=== PATIENT | male | born 1965 | race Caucasian/White ===

== ENCOUNTER 2017-01-15 17:25 | Inpatient (IN) | payer SELFPAY ==
[~2017-01-15] VITALS: Ht 182.9 cm; Wt 52.8 kg
[2017-01-15 20:05] VITALS: BP 120/81
[2017-01-15] MEDS ORDERED: LORAZEPAM 2 MG/ML VIAL IV PRN ×2 (20:45)
[2017-01-15] MEDS ORDERED: HALOPERIDOL LACT 5 MG/ML VIAL. IVP PRN (20:45)
[2017-01-15] MEDS ORDERED: MORPHINE SULFATE 2 MG/ML DISP.SYRIN. IV PRN (20:45)
[2017-01-15] MEDS ORDERED: LORAZEPAM 1 MG TABLET. PO PRN ×2 (20:45)
[2017-01-15] MEDS ORDERED: CHLORDIAZEPOXIDE HCL 25 MG CAPSULE PO PRN ×2 (20:45)
[2017-01-15] MEDS ORDERED: DIPHENHYDRAMINE 50 MG/ML VIAL IVP PRN (20:45)
[2017-01-15] MEDS ORDERED: CLONIDINE HCL 0.1 MG TABLET PO PRN (20:45)
[2017-01-15] MEDS: IV NORMAL SALINE 1000ML BAG 1,000 ML IV SCH (21:16)
[2017-01-15 21:26] LABS: BASO % 0 % (0-3); EOS % 0 % (0-3); HEMATOCRIT 38.3 % (39.0-53.0); HEMOGLOBIN 12.7 g/dL (13.0-17.5); LYMPH # 0.3 x10^3/uL (1.0-4.8); LYMPH % 4 % (24-48); MEAN CORPUSCULAR HEMOGLOBIN 34 pg (25-35); MEAN CORPUSCULAR HGB CONC 33 g/dL (31-37); MEAN CORPUSCULAR VOLUME 102 fL (79-100); MONO % 1 % (0-9); NEUT % 95 % (31-73); PLATELET COUNT 172 x10^3/uL (140-400); RED BLOOD COUNT 3.75 x10^6/uL (4.30-5.70); RED CELL DISTRIBUTION WIDTH 14.5 % (11.5-14.5); WHITE BLOOD COUNT 8.3 x10^3/uL (4.0-11.0)
[2017-01-15 21:50] LABS: CALCIUM 8.8 mg/dL (8.5-10.1); CREATININE 0.9 mg/dL (0.7-1.3); POTASSIUM 3.3 mmol/L (3.5-5.1)
[2017-01-15 21:54] LABS: DIRECT BILIRUBIN 0.3 mg/dL (0.0-0.2); TOTAL BILIRUBIN 0.7 mg/dL (0.2-1.0); TOTAL PROTEIN 7.9 g/dL (6.4-8.2)
[2017-01-15 22:19] LABS: PLT ESTIMATE ADEQUATE (ADEQUATE)
[2017-01-15 22:54] VITALS: BP 114/70
[2017-01-15] MEDS: MORPHINE SULFATE 4 MG/ML DISP.SYRIN. IV PRN (23:15)
--- NOTE | 2017-01-16 00:19 | HP ---
ADMIT DATE: 01/15/2017 CHIEF COMPLAINT: Neck mass. HISTORY OF PRESENT ILLNESS: The patient is a pleasant middle-aged white male who continues to smoke, although he states he quit a week ago. He presented to [facility] ER complaining of right neck mass. They did a CAT scan, confirming probable malignancy, have accepted the patient as a transfer to our facility with consultation to Oncology. PAST MEDICAL HISTORY: Tobacco abuse. ALLERGIES: None. FAMILY HISTORY: Noncontributory. SOCIAL HISTORY: He drinks socially. He does not take drugs. He does smoke, although he quit a week ago. MEDICATIONS: Reviewed. REVIEW OF SYSTEMS: GENERAL: No history of weight change, weakness or fevers. SKIN: No bruising, hair changes or rashes. EYES: No blurred, double or loss of vision. NOSE AND THROAT: No history of nosebleeds, hoarseness or sore throat. He complains of right neck mass. HEART: No history of palpitations, chest pain or shortness of breath on exertion. LUNGS: Denies cough, hemoptysis, wheezing or shortness of breath. GASTROINTESTINAL: Denies changes in appetite, nausea, vomiting, diarrhea or constipation. GENITOURINARY: No history of frequency, urgency, hesitancy or nocturia. NEUROLOGIC: Denies history of numbness, tingling, tremor or weakness. PSYCHIATRIC: No history of panic, anxiety or depression. ENDOCRINE: No history of heat or cold intolerance, polyuria or polydipsia. EXTREMITIES: Denies muscle weakness, joint pain, pain on walking or stiffness. PHYSICAL EXAMINATION: VITAL SIGNS: Temperature afebrile, pulse 68, respirations 21, and blood pressure 144/90. GENERAL: He is alert, cooperative, and anxious. HEENT: The right side of the neck is quite distended. There are nodules, at least 2 of them, one is about 2 cm and the other one is about 4 cm. They are firm, nontender. I suspect they are cancers. HEART: Normal S1, S2. LUNGS: Clear. ABDOMEN: Soft, positive bowel sounds. EXTREMITIES: No edema. SKIN: No rashes. PSYCHIATRIC: He is anxious. VASCULAR: Good capillary refill. ENDOCRINE: No thyromegaly. LYMPHATICS: He does have some enlarged lymph nodes on the cervical chain on both sides of his neck. HEMATOPOIETIC: No bruising. LABORATORY DATA: Pending. 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 The patient is being ____ consult Oncology. Suspect, he will need a biopsy. I have told him to quit smoking. We will use p.r.n. narcotics for pain, cardiac monitoring. MIRIAN BENEDICT DO DR: FRANK/avani JOB#: [id number] / [id number]
[2017-01-16] MEDS ORDERED: PNEUMOCOCCAL VAX SCREEN BY RX. MC ONE (01:45)
[2017-01-16] MEDS ORDERED: INFLUENZA VAX SCREEN BY RX. MC ONE (01:45)
[2017-01-16 02:22] VITALS: BP 131/85
[2017-01-16 06:06] LABS: BASO % 0 % (0-3); EOS % 0 % (0-3); HEMATOCRIT 37.3 % (39.0-53.0); HEMOGLOBIN 12.3 g/dL (13.0-17.5); LYMPH # 0.3 x10^3/uL (1.0-4.8); LYMPH % 4 % (24-48); MEAN CORPUSCULAR HEMOGLOBIN 34 pg (25-35); MEAN CORPUSCULAR HGB CONC 33 g/dL (31-37); MEAN CORPUSCULAR VOLUME 104 fL (79-100); MONO % 1 % (0-9); NEUT % 94 % (31-73); PLATELET COUNT 170 x10^3/uL (140-400); RED BLOOD COUNT 3.59 x10^6/uL (4.30-5.70); RED CELL DISTRIBUTION WIDTH 14.8 % (11.5-14.5); WHITE BLOOD COUNT 7.8 x10^3/uL (4.0-11.0)
[2017-01-16 06:17] LABS: CALCIUM 8.6 mg/dL (8.5-10.1); CREATININE 0.8 mg/dL (0.7-1.3); GFR 101.9; POTASSIUM 3.1 mmol/L (3.5-5.1)
[2017-01-16 07:00] VITALS: BP 142/91
--- NOTE | 2017-01-16 08:55 | PDOC ---
Provider Note Provider Note Onc consult dictated- [id number] Head and neck cancer with supraglottic airway narrowing Cachexia Tob abuse history- quit 1 wk ago Needs transfer to for ENT eval & bx, rad onc, med onc, dental, aggressive nutritional support. Ordered CT chest while waiting for transfer. NEAL SANTANA DO Jan 16, 2017 08:55
[2017-01-16] MEDS ORDERED: FLU VACC QUAD 2016-17 (36MOS+)/PF 0.5 ML SYRINGE. VAX IM ONE (09:00)
[2017-01-16] MEDS ORDERED: PNEUMOC CONJ VACC 23-VALENT 0.5 ML VIAL. VAX IM ONE (09:00)
[2017-01-16] MEDS ORDERED: MULTIVIT INFUSN,ADULT 4,VIT K 10 ML, THIAMINE 100 MG, FOLIC ACID 1 MG in IV NORMAL SALI... IV SCH (09:00)
[2017-01-16] MEDS: IV NORMAL SALINE 1000ML BAG 1,000 ML IV SCH (09:02)
[2017-01-16] MEDS ORDERED: POTASSIUM CHLORIDE 20 MEQ TABLET.ER. PO ONE (09:45)
--- NOTE | 2017-01-16 10:00 | PDOC ---
PROGRESS NOTES Chief Complaint Chief Complaint Head and neck cancer with supraglottic airway narrowing Plan Transfer to [facility] ENT History of Present Illness History of Present Illness no sob mild difficulty to swallow no fever Vitals Vitals Vital Signs Date Time Temp Pulse Resp B/P Pulse Ox O2 Delivery O2 Flow Rate FiO2 01/16/17 08:00 Room Air 01/16/17 07:00 97.9 105 20 142/91 96 97.9 Physical Exam General: Alert, Oriented X3, Other (right neck mass solid 6-7 cm) Heart: Normal S1, Normal S2 Lungs: Clear, Wheezing Abdomen: Normal bowel sounds, Soft Extremities: No clubbing Labs LABS Laboratory Tests Test 01/15/17 20:38 01/15/17 21:15 01/16/17 05:25 Total Bilirubin 0.7mg/dL (0.2-1.0) Direct Bilirubin 0.3mg/dL (0.0-0.2) Aspartate Amino Transf (AST/SGOT) 25U/L (15-37) Alanine Aminotransferase (ALT/SGPT) 18U/L (16-63) Alkaline Phosphatase 145U/L (46-116) Total Protein 7.9g/dL (6.4-8.2) Albumin 3.0g/dL (3.4-5.0) White Blood Count 8.3x10^3/uL (4.0-11.0) 7.8x10^3/uL (4.0-11.0) Red Blood Count 3.75x10^6/uL (4.30-5.70) 3.59x10^6/uL (4.30-5.70) Hemoglobin 12.7g/dL (13.0-17.5) 12.3g/dL (13.0-17.5) Hematocrit 38.3% (39.0-53.0) 37.3% (39.0-53.0) Mean Corpuscular Volume 102fL (79-100) 104fL (79-100) Mean Corpuscular Hemoglobin 34pg (25-35) 34pg (25-35) Mean Corpuscular Hemoglobin Concent 33g/dL (31-37) 33g/dL (31-37) Red Cell Distribution Width 14.5% (11.5-14.5) 14.8% (11.5-14.5) Platelet Count 172x10^3/uL (140-400) 170x10^3/uL (140-400) Neutrophils (%) (Auto) 95% (31-73) 94% (31-73) Lymphocytes (%) (Auto) 4% (24-48) 4% (24-48) Monocytes (%) (Auto) 1% (0-9) 1% (0-9) Eosinophils (%) (Auto) 0% (0-3) 0% (0-3) Basophils (%) (Auto) 0% (0-3) 0% (0-3) Neutrophils # (Auto) 7.9x10^3uL (1.8-7.7) 7.4x10^3uL (1.8-7.7) Lymphocytes # (Auto) 0.3x10^3/uL (1.0-4.8) 0.3x10^3/uL (1.0-4.8) Monocytes # (Auto) 0.1x10^3/uL (0.0-1.1) 0.1x10^3/uL (0.0-1.1) Eosinophils # (Auto) 0.0x10^3/uL (0.0-0.7) 0.0x10^3/uL (0.0-0.7) Basophils # (Auto) 0.0x10^3/uL (0.0-0.2) 0.0x10^3/uL (0.0-0.2) Segmented Neutrophils % 92% (35-66) Band Neutrophils % 2% (0-9) Lymphocytes % 3% (24-48) Monocytes % 3% (0-10) Platelet Estimate Adequate (ADEQUATE) Macrocytosis Slight Sodium Level 134mmol/L (136-145) 133mmol/L (136-145) Potassium Level 3.3mmol/L (3.5-5.1) 3.1mmol/L (3.5-5.1) Chloride Level 94mmol/L (98-107) 92mmol/L (98-107) Carbon Dioxide Level 27mmol/L (21-32) 26mmol/L (21-32) Anion Gap 13 (6-14) 15 (6-14) Blood Urea Nitrogen 9mg/dL (8-26) 9mg/dL (8-26) Creatinine 0.9mg/dL (0.7-1.3) 0.8mg/dL (0.7-1.3) Estimated GFR (Cockcroft-Gault) 89.0 101.9 Glucose Level 133mg/dL (70-99) 95mg/dL (70-99) Calcium Level 8.8mg/dL (8.5-10.1) 8.6mg/dL (8.5-10.1) Comment Review of Relevant I have reviewed the following items javier (where applicable) has been applied. Labs Laboratory Tests Test 01/15/17 20:38 01/15/17 21:15 01/16/17 05:25 Total Bilirubin 0.7mg/dL (0.2-1.0) Direct Bilirubin 0.3mg/dL (0.0-0.2) Aspartate Amino Transf (AST/SGOT) 25U/L (15-37) Alanine Aminotransferase (ALT/SGPT) 18U/L (16-63) Alkaline Phosphatase 145U/L (46-116) Total Protein 7.9g/dL (6.4-8.2) Albumin 3.0g/dL (3.4-5.0) White Blood Count 8.3x10^3/uL (4.0-11.0) 7.8x10^3/uL (4.0-11.0) Red Blood Count 3.75x10^6/uL (4.30-5.70) 3.59x10^6/uL (4.30-5.70) Hemoglobin 12.7g/dL (13.0-17.5) 12.3g/dL (13.0-17.5) Hematocrit 38.3% (39.0-53.0) 37.3% (39.0-53.0) Mean Corpuscular Volume 102fL (79-100) 104fL (79-100) Mean Corpuscular Hemoglobin 34pg (25-35) 34pg (25-35) Mean Corpuscular Hemoglobin Concent 33g/dL (31-37) 33g/dL (31-37) Red Cell Distribution Width 14.5% (11.5-14.5) 14.8% (11.5-14.5) Platelet Count 172x10^3/uL (140-400) 170x10^3/uL (140-400) Neutrophils (%) (Auto) 95% (31-73) 94% (31-73) Lymphocytes (%) (Auto) 4% (24-48) 4% (24-48) Monocytes (%) (Auto) 1% (0-9) 1% (0-9) Eosinophils (%) (Auto) 0% (0-3) 0% (0-3) Basophils (%) (Auto) 0% (0-3) 0% (0-3) Neutrophils # (Auto) 7.9x10^3uL (1.8-7.7) 7.4x10^3uL (1.8-7.7) Lymphocytes # (Auto) 0.3x10^3/uL (1.0-4.8) 0.3x10^3/uL (1.0-4.8) Monocytes # (Auto) 0.1x10^3/uL (0.0-1.1) 0.1x10^3/uL (0.0-1.1) Eosinophils # (Auto) 0.0x10^3/uL (0.0-0.7) 0.0x10^3/uL (0.0-0.7) Basophils # (Auto) 0.0x10^3/uL (0.0-0.2) 0.0x10^3/uL (0.0-0.2) Segmented Neutrophils % 92% (35-66) Band Neutrophils % 2% (0-9) Lymphocytes % 3% (24-48) Monocytes % 3% (0-10) Platelet Estimate Adequate (ADEQUATE) Macrocytosis Slight Sodium Level 134mmol/L (136-145) 133mmol/L (136-145) Potassium Level 3.3mmol/L (3.5-5.1) 3.1mmol/L (3.5-5.1) Chloride Level 94mmol/L (98-107) 92mmol/L (98-107) Carbon Dioxide Level 27mmol/L (21-32) 26mmol/L (21-32) Anion Gap 13 (6-14) 15 (6-14) Blood Urea Nitrogen 9mg/dL (8-26) 9mg/dL (8-26) Creatinine 0.9mg/dL (0.7-1.3) 0.8mg/dL (0.7-1.3) Estimated GFR (Cockcroft-Gault) 89.0 101.9 Glucose Level 133mg/dL (70-99) 95mg/dL (70-99) Calcium Level 8.8mg/dL (8.5-10.1) 8.6mg/dL (8.5-10.1) Laboratory Tests Test 01/15/17 20:38 01/15/17 21:15 01/16/17 05:25 Total Bilirubin 0.7mg/dL (0.2-1.0) Direct Bilirubin 0.3mg/dL (0.0-0.2) Aspartate Amino Transf (AST/SGOT) 25U/L (15-37) Alanine Aminotransferase (ALT/SGPT) 18U/L (16-63) Alkaline Phosphatase 145U/L (46-116) Total Protein 7.9g/dL (6.4-8.2) Albumin 3.0g/dL (3.4-5.0) White Blood Count 8.3x10^3/uL (4.0-11.0) 7.8x10^3/uL (4.0-11.0) Red Blood Count 3.75x10^6/uL (4.30-5.70) 3.59x10^6/uL (4.30-5.70) Hemoglobin 12.7g/dL (13.0-17.5) 12.3g/dL (13.0-17.5) Hematocrit 38.3% (39.0-53.0) 37.3% (39.0-53.0) Mean Corpuscular Volume 102fL (79-100) 104fL (79-100) Mean Corpuscular Hemoglobin 34pg (25-35) 34pg (25-35) Mean Corpuscular Hemoglobin Concent 33g/dL (31-37) 33g/dL (31-37) Red Cell Distribution Width 14.5% (11.5-14.5) 14.8% (11.5-14.5) Platelet Count 172x10^3/uL (140-400) 170x10^3/uL (140-400) Neutrophils (%) (Auto) 95% (31-73) 94% (31-73) Lymphocytes (%) (Auto) 4% (24-48) 4% (24-48) Monocytes (%) (Auto) 1% (0-9) 1% (0-9) Eosinophils (%) (Auto) 0% (0-3) 0% (0-3) Basophils (%) (Auto) 0% (0-3) 0% (0-3) Neutrophils # (Auto) 7.9x10^3uL (1.8-7.7) 7.4x10^3uL (1.8-7.7) Lymphocytes # (Auto) 0.3x10^3/uL (1.0-4.8) 0.3x10^3/uL (1.0-4.8) Monocytes # (Auto) 0.1x10^3/uL (0.0-1.1) 0.1x10^3/uL (0.0-1.1) Eosinophils # (Auto) 0.0x10^3/uL (0.0-0.7) 0.0x10^3/uL (0.0-0.7) Basophils # (Auto) 0.0x10^3/uL (0.0-0.2) 0.0x10^3/uL (0.0-0.2) Segmented Neutrophils % 92% (35-66) Band Neutrophils % 2% (0-9) Lymphocytes % 3% (24-48) Monocytes % 3% (0-10) Platelet Estimate Adequate (ADEQUATE) Macrocytosis Slight Sodium Level 134mmol/L (136-145) 133mmol/L (136-145) Potassium Level 3.3mmol/L (3.5-5.1) 3.1mmol/L (3.5-5.1) Chloride Level 94mmol/L (98-107) 92mmol/L (98-107) Carbon Dioxide Level 27mmol/L (21-32) 26mmol/L (21-32) Anion Gap 13 (6-14) 15 (6-14) Blood Urea Nitrogen 9mg/dL (8-26) 9mg/dL (8-26) Creatinine 0.9mg/dL (0.7-1.3) 0.8mg/dL (0.7-1.3) Estimated GFR (Cockcroft-Gault) 89.0 101.9 Glucose Level 133mg/dL (70-99) 95mg/dL (70-99) Calcium Level 8.8mg/dL (8.5-10.1) 8.6mg/dL (8.5-10.1) Medications Current Medications Multivitamins/ Thiamine HCl/ Folic Acid/Sodium Chloride (Infuvite Adult/ Iv Sodium Chloride 0.9% 1000ml Bag) 1,011.2 ml @ 100 mls/ hr DAILY IV Last administered on 01/16/17 08:54; Start 01/16/17 at 09:00; Stop 01/21/17 at 08:59 Chlordiazepoxide (Librium) 50 mg PRN Q1HR PRN PO For CIWA 8-14; Start 01/15/17 at 20:45 Chlordiazepoxide (Librium) 100 mg PRN Q1HR PRN PO For CIWA 15 or greater; Start 01/15/17 at 20:45 Lorazepam (Ativan) 4 mg PRN Q1HR PRN PO For CIWA 8-14; Start 01/15/17 at 20:45 Lorazepam (Ativan) 8 mg PRN Q1HR PRN PO For CIWA 15 or greater; Start 01/15/17 at 20:45 Lorazepam (Ativan) 2 mg PRN Q1HR PRN IV For CIWA 8-14 Last administered on 01/15t 23:15; Start 01/15/17 at 20:45 Lorazepam (Ativan) 4 mg PRN Q1HR PRN IV For CIWA 15 or greater; Start 01/15/17 at 20:45 Haloperidol Lactate (Haldol) 5 mg PRN Q4HRS PRN IVP Hallucinatns,Confusn, Delirium; Start 01/15/17 at 20:45 Diphenhydramine HCl (Benadryl) 25 mg PRN Q15MIN PRN IVP EPS symptoms 2'Haldol admin; Start 01/15/17 at 20:45 Clonidine HCl 0.1 mg 0.1 mg PRN Q1HR PRN PO SBP > 180 or DBP > 100, MRX3; Start 01/15/17 at 20:45 Sodium Chloride (Iv Sodium Chloride 0.9% 1000ml Bag) 1,000 ml @ 75 mls/hr [id number] IV Last administered on 01/15/17 21:16; Start 01/15/17 at 20:45 Morphine Sulfate 2 mg PRN Q2HR PRN IV PAIN Last administered on 01/15/17 21:22 ; Start 01/15/17 at 20:45; Stop 01/15/17 at 23:04; Status DC Morphine Sulfate 4 mg PRN Q2HR PRN IV SEVERE PAIN Last administered on 23:15; Start 01/15/17 at 23:15 Info (Do NOT chart on this placeholder) 1 each 1X ONCE MC ; Start 01/16/17 at 01:45; Stop 01/16/17 at 01:46; Status UNV Pneumococcal Polyvalent Vaccine (Do NOT chart on this placeholder) 1 each 1X ONCE MC ; Start 01/16/17 at 01:45; Stop 01/16/17 at 01:46; Status UNV Influenza Virus Vaccine Quadrival (Fluarix Quad [id number] Syringe) 0.5 ml ONCE ONCE VAX IM Last administered on 01/16/17 08:55; Start 01/16/17 at 09:00; Stop 01/16/17 at 09:01; Status DC Pneumococcal Polyvalent Vaccine (Pneumovax 23) 0.5 ml ONCE ONCE VAX IM Last administered on 01/16/17 08:58; Start 01/16/17 at 09:00; Stop 01/16/17 at 09:01 ; Status DC Potassium Chloride (Klor-Con) 40 meq 1X ONCE PO ; Start 01/16/17 at 09:45; Stop 01/16/17 at 09:47; Status DC Vitals/I & O Vital Sign - Last 24 Hours 01/15/17 01/15/17 01/15/17 01/15/17 20:05 21:00 21:22 21:52 Temp 97.8 97.8 Pulse 102 Resp 18 B/P 120/81 Pulse Ox 100 98 O2 Delivery Room Air Room Air Room Air Room Air 01/15/17 01/15/17 01/15/17 01/16/17 22:54 23:15 23:45 02:22 Temp 98.7 98.2 98.7 98.2 Pulse 106 94 Resp 18 18 B/P 114/70 131/85 Pulse Ox 98 98 98 98 O2 Delivery Room Air Room Air Room Air 01/16/17 01/16/17 07:00 08:00 Temp 97.9 97.9 Pulse 105 Resp 20 B/P 142/91 Pulse Ox 96 O2 Delivery Room Air Room Air Intake and Output 01/15/17 01/15/17 01/16/17 15:00 23:00 07:00 Intake Total 700 ml Balance 700 ml RACQUEL JEFFERSON MD Jan 16, 2017 10:00
[2017-01-16] MEDS ORDERED: DEXAMETHASONE SOD PHOS 20 MG/5 ML VIAL. IV ONE (10:45)
[2017-01-16] MEDS: MORPHINE SULFATE 4 MG/ML DISP.SYRIN. IV PRN (10:50)
[2017-01-16 11:00] VITALS: BP 120/75
--- NOTE | 2017-01-16 11:16 | CONS ---
DATE OF CONSULTATION: 01/16/2017 REFERRING PROVIDER: Carley Yoder DO. REASON FOR CONSULTATION: Head and neck cancer. HISTORY OF PRESENT ILLNESS: The patient is a 51-year-old male who presented to [facility] with a 3-month history of an enlarging right-sided neck mass. He has developed a hoarse voice, lost 15 pounds, has a persistent cough, shortness of breath. CT imaging, there confirmed a 2.7 cm supraglottic mass with regional adenopathy measuring up to 4.5 cm. There is narrowing of the supraglottic airway. He clearly is uncomfortable with this and appears cachectic. PAST MEDICAL HISTORY: Tobacco abuse, otherwise negative. PAST SURGICAL HISTORY: Negative. FAMILY HISTORY: Negative for any malignancies. SOCIAL HISTORY: Previously smoked 2 packs a day for 40 years and quit one week ago. He has previously worked as a shingles roofer. ALLERGIES: PENICILLIN. CURRENT MEDICATIONS: Librium, clonidine, Benadryl, Haldol, Ativan, morphine, multivitamins. REVIEW OF SYSTEMS: Ten point review of systems completed and unremarkable with the exception of that mentioned above and diffuse arthralgias at baseline. PHYSICAL EXAMINATION: VITAL SIGNS: Temperature 97.9, pulse 105, respiratory rate 20, blood pressure 142/91 and 96% O2 on room air. GENERAL: He is alert and oriented. He is cachectic. He is clearly uncomfortable with his coughing and neck pain. HEENT: 10 cm right cervical mass present causing difficulty swallowing and managing his secretions with coughing at times. PULMONARY: Wheezing bilaterally. CARDIOVASCULAR: Heart is regular in rhythm and rate. ABDOMEN: Soft, nontender. EXTREMITIES: No edema. NEUROLOGIC: No focal cranial deficit. IMAGING AND LABORATORY DATA: CT as above. CBC, CMP, relatively unremarkable with the exception of potassium 3.1. ASSESSMENT AND PLAN: The patient is a 51-year-old male with the following medical problems: 1. 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 He is clearly symptomatic with this and I am concerned about the narrowing seen on imaging in the supraglottic airway. I think he needs transfer to [facility] where he can undergo ENT evaluation, biopsy and multidisciplinary approach as he is likely going to need chemoradiation, dental evaluation and aggressive nutritional input. I have placed a referral to nurse case management to help with this transfer. I am also going to order a CT chest while he is here to be done if possible while we are waiting for the transfer. Thank you for allowing me to participate in his care. I discussed this with Dr. Yoder. NEAL SANTANA DO DR: CASSI/avani JOB#: [id number] / [id number]
[2017-01-16] MEDS ORDERED: IOHEXOL 300 MG/ML 75 ML VIAL IV ONE (11:45)
--- NOTE | 2017-01-16 23:32 | DS ---
DATE OF DISCHARGE: 01/16/2017 DISCHARGE DIAGNOSES: 1. Right neck mass suspicious for malignancy. 2. Nicotine use. BRIEF HOSPITAL COURSE: A 51-year-old male patient presented to the [facility] ER for 3-4 months history of right-sided neck mass and difficulty to swallow food and with mild shortness of breath. He had imaging studies such as CT of the head and neck showed 2.7 cm supraglottic mass with regional adenopathy. The patient has been transferred to [facility] for oncology consultation. Dr. Sanchez examined the patient this morning and recommend him to transfer to for ENT followup. I did discuss with transfer team this morning and they would be able to accept the patient for ENT consultation. The patient received 10 mg of IV Decadron and we did replace his potassium. The patient able to take his medications. No acute shortness of breath is noted. At the time of discharge, his airway is patent. DISCHARGE DISPOSITION: [facility]. DISCHARGE CONDITION: Stable. PROGNOSIS: Guarded. MEDICATIONS: Please see MRAD. Total time spent for discharge is 35 minutes for patient education, counseling, and coordination of care. RACQUEL JEFFERSON MD DR: ZAIN/avani JOB#: [id number] / [id number] BIANCA
== END 2017-01-16 12:57 | disposition short-term general hospital (02) | DRG 147 ==
LOC: 6 SOUTH 20:07
PROVIDERS: ADMIT Internal Medicine; ATTEND Internal Medicine
DX: C76.0 Malignant neoplasm of head, face and neck (principal); R64 Cachexia; Z68.1 Body mass index [BMI] 19.9 or less, adult; E44.0 Moderate protein-calorie malnutrition; F17.200 Nicotine dependence, unspecified, uncomplicated; Z79.899 Other long term (current) drug therapy; Z88.0 Allergy status to penicillin
CPT/HCPCS: 36415; 80048; 80076; 85007; 85027; 90686; 90732; J1100; J2060; J2270; J7030

== ENCOUNTER → 2017-09-18 | Outpatient (CLI) | payer OTHER ==
[2017-09-08 10:43] VITALS: BP 140/93
[~2017-09-18] MED LIST: DEXA4TAB PO; ESCITALOPRAM OX20 MG PO; LEVO500T59 PO; LEVO50TA5 PO; MAGN250T9 PO; MIRT30TA3 PO; OLAN10TA9 PO; POTA20TA82 PO
== END | disposition home or self-care (01) ==
LOC: PMGWOUND 08:57
PROVIDERS: ATTEND Preventive Medicine Undersea and Hyperbaric Medicine
DX: L89.893 Pressure ulcer of other site, stage 3 (principal); C76.0 Malignant neoplasm of head, face and neck; E87.5 Hyperkalemia; I10 Essential (primary) hypertension; F41.9 Anxiety disorder, unspecified; J44.9 Chronic obstructive pulmonary disease, unspecified; F32.9 Major depressive disorder, single episode, unspecified; M19.90 Unspecified osteoarthritis, unspecified site; F17.210 Nicotine dependence, cigarettes, uncomplicated; F10.20 Alcohol dependence, uncomplicated; Z85.01 Personal history of malignant neoplasm of esophagus
CPT/HCPCS: 97597

== ENCOUNTER → 2017-09-22 | Outpatient (CLI) | payer OTHER ==
[2017-09-08 10:43] VITALS: BP 140/93
--- NOTE | 2017-09-22 16:38 | RAD ---
Right upper extremity venous duplex ultrasound 09/22/2017 Indication: Right upper extremity swelling. Comparison study: None Discussion: Ultrasound evaluation of the right upper extremity deep veins was performed. Evaluation includes color Doppler imaging spectral analysis. The right jugular vein is patent. Right subclavian vein is patent. Right axillary vein is patent. Brachial veins are patent. Basilic vein is patent. Radial ulnar veins are patent. No gross sonographic abnormality is identified in the area of concern as indicated by the patient, within the right supraclavicular region. Impression: No evidence of deep venous thrombosis involving the right upper extremity.
== END | disposition home or self-care (01) ==
LOC: US 15:03
PROVIDERS: ATTEND Internal Medicine Hematology & Oncology
DX: M79.89 Other specified soft tissue disorders (principal); R22.1 Localized swelling, mass and lump, neck
CPT/HCPCS: 93971

== ENCOUNTER → 2017-10-02 | Outpatient (CLI) | payer OTHER ==
[2017-09-08 10:43] VITALS: BP 140/93
== END | disposition home or self-care (01) ==
LOC: PMGWNDHBO 10:30
PROVIDERS: ATTEND Preventive Medicine Undersea and Hyperbaric Medicine
DX: L89.893 Pressure ulcer of other site, stage 3 (principal); F41.9 Anxiety disorder, unspecified; J44.9 Chronic obstructive pulmonary disease, unspecified; C76.0 Malignant neoplasm of head, face and neck; I10 Essential (primary) hypertension; F32.9 Major depressive disorder, single episode, unspecified; F17.210 Nicotine dependence, cigarettes, uncomplicated; E78.5 Hyperlipidemia, unspecified; M19.90 Unspecified osteoarthritis, unspecified site; Z85.01 Personal history of malignant neoplasm of esophagus
CPT/HCPCS: 97597

== ENCOUNTER → 2017-10-16 | Outpatient (CLI) | payer OTHER ==
[2017-09-08 10:43] VITALS: BP 140/93
== END | disposition home or self-care (01) ==
LOC: PMGWOUND 11:40
PROVIDERS: ATTEND Preventive Medicine Undersea and Hyperbaric Medicine
DX: L89.893 Pressure ulcer of other site, stage 3 (principal); C76.0 Malignant neoplasm of head, face and neck; E87.5 Hyperkalemia; I10 Essential (primary) hypertension; F41.9 Anxiety disorder, unspecified; J44.9 Chronic obstructive pulmonary disease, unspecified; E78.5 Hyperlipidemia, unspecified; F32.9 Major depressive disorder, single episode, unspecified; F17.210 Nicotine dependence, cigarettes, uncomplicated; M19.90 Unspecified osteoarthritis, unspecified site; F10.20 Alcohol dependence, uncomplicated; Z85.01 Personal history of malignant neoplasm of esophagus
CPT/HCPCS: 97597

== ENCOUNTER → 2017-10-23 | Outpatient (CLI) | payer OTHER ==
[2017-09-08 10:43] VITALS: BP 140/93
== END | disposition home or self-care (01) ==
LOC: PMGWOUND 10:40
PROVIDERS: ATTEND Preventive Medicine Undersea and Hyperbaric Medicine
DX: L89.893 Pressure ulcer of other site, stage 3 (principal); C76.0 Malignant neoplasm of head, face and neck; E87.5 Hyperkalemia; I10 Essential (primary) hypertension; F41.9 Anxiety disorder, unspecified; J44.9 Chronic obstructive pulmonary disease, unspecified; E78.5 Hyperlipidemia, unspecified; F32.9 Major depressive disorder, single episode, unspecified; F17.210 Nicotine dependence, cigarettes, uncomplicated; M19.90 Unspecified osteoarthritis, unspecified site; F10.20 Alcohol dependence, uncomplicated; Z85.01 Personal history of malignant neoplasm of esophagus
CPT/HCPCS: 99214